=== PATIENT | female | born 1960 | race Caucasian/White ===

== ENCOUNTER → 2024-05-17 16:55 | Outpatient (REF) | payer OTHER, SELFPAY | LOC: HWRAD 16:55 | PROVIDERS: ATTENDING PHYSICIAN Nurse Practitioner | DX: Z87.891 Personal history of nicotine dependence (principal) | CPT/HCPCS: 71046 ==

== ENCOUNTER → 2024-06-08 12:41 | Outpatient (REF) | payer OTHER, SELFPAY | LOC: HWRAD 12:41 | PROVIDERS: ATTENDING PHYSICIAN Nurse Practitioner | DX: R22.1 Localized swelling, mass and lump, neck (principal) | CPT/HCPCS: 76536 ==

== ENCOUNTER → 2024-12-12 08:47 | Emergency (ER) | payer OTHER, SELFPAY ==
[2024-12-12 08:56] VITALS: BP 116/66
[2024-12-12 09:15] LABS: % Basophils 0.5 % (0-2); % Eosinophils 0.3 % (0-6); % Immature Granulocytes 0.3 % (0-0.5); % Lymphocytes 11.9 % (20.5-51.1); % Monocytes 8.5 % (1.7-9.3); % Neutrophils 78.5 % (42.2-75.2); Absolute Lymphocytes 0.7 10^3/uL (1.2-3.4); Absolute Monocytes 0.5 10^3/uL (0.1-0.6); Absolute Neutrophils 4.8 10^3/uL (1.4-6.5); Hematocrit 39.3 % (37.0-47.0); Hemoglobin 13.5 g/dL (12.0-16.0); Mean Corp Hgb Conc. 34.4 g/dL (33.0-37.0); Mean Corpuscular Hgb 30.5 pg (27.0-31.0); Mean Corpuscular Volume 88.7 fL (81.0-99.0); Mean Platelet Volume 10.4 fL (7.4-10.4); Nucleated Red Blood Cells % 0 %; Platelet Count 207 10^3/uL (130-400); Red Blood Cell Count 4.43 10^6/uL (4.20-5.40); Red Cell Dist. Width 11.9 % (11.5-14.5); White Blood Cell Count 6.1 10^3/uL (4.8-10.8)
[2024-12-12 09:38] LABS: ALT (SGPT) 17 U/L (0-35); AST (SGOT) 29 U/L (14-36); Albumin 4.4 g/dl (3.5-5.0); Alkaline Phosphatase 96 U/L (38-126); Blood Urea Nitrogen 11 mg/dl (7-17); Calcium 9.6 mg/dl (8.4-10.2); Carbon Dioxide 23 mmol/L (22-30); Chloride 98 mmol/L (98-107); Glucose 122 mg/dl (70-99); Potassium 4.4 mmol/L (3.5-5.1); Sodium 133 mmol/L (135-145); Total Bilirubin 0.8 mg/dl (0.2-1.3); eGFR > 60.00
--- NOTE | 2024-12-12 10:32 | ED.GENMED ---
History of Present Illness
General
Chief Complaint: Cold/Flu/URI Symptoms
Source: patient
Exam Limitations: none
Time Seen by Provider: 12/12/24 10:20
Nursing documentation reviewed up to this point in time: agreed with
History of Present Illness
History of Present Illness:
Patient is a 63-year-old female who presents to the ER for evaluation of cough. Patient reports has been sick for the past 2 weeks. She complains of runny nose however the worst symptom is her cough. She did leave work early yesterday because she
had the chills and had the sweats throughout the night. She denies any actual shortness of breath. She tested for COVID it was negative.
She does report that yesterday afternoon while at work she had an episode where she felt her depth perception was off in both of her eyes. She initially thought she switched her contact lenses but she did not. She reports episode lasted about 30
minutes. She had no associated headache with it. She does have a headache now but she feels this is from persistent cough.
She does not smoke.
She does still complain of a runny nose however has not taken any nasal decongestant [id number] medicines for this. She has taken occasional ibuprofen for headache. She did not take anything today.
Review of Systems
Review of Systems
Allergies reviewed?: Yes
All Other Systems: ROS reviewed and negative except as documented in HPI and ROS
Constitutional: Reports chills
EENT: Reports no symptoms
Respiratory: Reports cough; Denies trouble breathing
Cardiac: Reports no symptoms
ABD/GI: Reports no symptoms; Denies abdominal pain, nausea or vomiting
: Reports no symptoms
Musculoskeletal: Reports no symptoms
Skin: Reports no symptoms
Neurological: Reports no symptoms
Psychiatric: Reports no symptoms
Phy Exam
General Physical Exam
General Presentation: well appearing
General age: appears stated age
General Skin: warm and dry
General Habitus: normal
General Mental: alert
General Hydration: appears well hydrated
Cardiovascular Exam
Cardiovascular Exam: regular rate/rhythm, no murmur and normal peripheral pulses
Pulmonary Exam
Pulmonary Exam: lungs clear and other (+ cough )
Neurological Exam
Neurological Exam: alert and oriented x3
Musculoskeletal Exam
Musculoskeletal Exam: full ROM
Skin Exam
Skin Exam: normal color and warm/dry
Psychiatric Exam
Psychiatric Exam: normal mood/affect
Course
Orders/Labs/Results
Orders:
Orders
12/12/24 09:00
CXR2 [CR Chest - 2 Views ] Urgent
Comment:
Reason For Exam: cough
12/12/24 09:05
Complete Blood Count/With Diff Urgent
Comprehensive Metabolic Panel Urgent
Influenza A+B Rapid Molecular Urgent
[facility] Source: Nasal Swab
Specimen Description:
12/12/24 10:34
Albuterol Nebs [Ventolin Nebules] 2.5 mg INH R NOW STA
12/12/24 10:39
Prednisone [Deltasone] 50 mg PO NOW STA
12/12/24 10:42
Acetaminophen [Tylenol] 1,000 mg PO NOW STA
12/12/24 12:13
Albuterol Nebs [Ventolin Nebules] 2.5 mg INH R NOW STA
Abnormal Lab Results
12/12/24
09:05
Absolute Lymphs (auto) 0.7 L 10^3/uL
(1.2-3.4)
Neutrophils % 78.5 H %
(42.2-75.2)
Lymphocytes % 11.9 L %
(20.5-51.1)
Sodium 133 L mmol/L
(135-145)
Glucose 122 H mg/dl
(70-99)
12/12/24 09:05
12/12/24 09:05
Vital Signs
Initial and Last Documented VS:
Initial Vital Signs
Temp Pulse Resp BP Pulse Ox
98.0 F 86 16 116/66 98
12/12/24 08:56 12/12/24 08:56 12/12/24 08:56 12/12/24 08:56 12/12/24 08:56
Last Documented Vital Signs
Temp Pulse Resp BP Pulse Ox
98.0 F 80 16 138/69 99
12/12/24 08:56 12/12/24 12:04 12/12/24 08:56 12/12/24 11:00 12/12/24 11:00
MDM/Problems Addressed
Differential Diagnosis Includes:
Not limited to pneumonia less likely bronchitis
MDM/Problems Addressed:
Symptoms are consistent with bronchitis. Patient has had a cough and URI for the past 2 weeks. Patient is afebrile here with a normal white count lungs are clear chest x-ray negative. Patient had 2 nebs here and feeling much more open less
coughing. She was also given a dose of steroids. Will DC with steroids for the next 4 days with an albuterol inhaler to close the patient family doctor. She is no acute distress and nontoxic.
*Radiology
Radiology exam reviewed: radiology read reviewed
*Pulse Oximetry
Patient hypoxic: no
*Critical Care Note
Total Time (30-74mins, 75-104mins- exclusive of procedures): Not Applicable
ED Attending Note
-
Portions of this chart may have been created with voice recognition software.� Occasional wrong word or��sound alike� substitutions may have occurred due to the inherent limitations of voice recognition software.
Discharge Plan
Departure
Patient Disposition: Home (Routine Discharge)
Date of Disposition: 12/12/24
Time of Disposition: 12:51
Patient with high blood pressure during this ER visit?: No
Covid-19: Not Applicable
Discharge Problem:
Bronchitis
Referrals:
Betty Andrade CRNP [Family Provider] -
Interventions
Interventions:
*Risk Screen - Suicide Last Done: 12/12/24 08:56
*General Assessment Last Done: 12/12/24 11:07
*Neglect/Abuse Screening Last Done: 12/12/24 08:56
*ED COVID-19 Vaccine History Last Done: 12/12/24 11:07
Discharge Date and Time
Print Language: TANZANIAN
[2024-12-12] MEDS: TYLENOL 1000 MG PO (10:52)
[2024-12-12] MEDS: VENTOLIN NEBULES 2.5 MG INH ×2 (10:53→12:30)
[2024-12-12] MEDS: DELTASONE 50 MG PO (10:53)
[2024-12-12 10:55] VITALS: BMI 21.0
[2024-12-12 10:56] VITALS: BP 143/81
[2024-12-12 11:00] VITALS: BP 138/69
[2024-12-12 12:32] VITALS: BP 120/75
== END | disposition home or self-care (01) ==
LOC: EMR 08:47
PROVIDERS: EMERGENCY PHYSICIAN Emergency Medicine; FAMILY PHYSICIAN Nurse Practitioner
DX: J40 Bronchitis, not specified as acute or chronic (principal)
CPT/HCPCS: 99284; 94640; 71046; 80053; 85025; 87502